=== PATIENT | male | born 2000 | race Two or more races ===

== ENCOUNTER → 2019-09-03 | Outpatient (CLI) | payer OTHER ==
[~2019-09-03] MED LIST: CORTISPORIN EAR10 M1 OTIC
== END | disposition home or self-care (01) ==
LOC: OFIC 805 11:14
DX: H93.8X1 Other specified disorders of right ear (principal); H92.01 Otalgia, right ear; H68.101 Unspecified obstruction of Eustachian tube, right ear

== ENCOUNTER 2019-09-09 13:43 | Outpatient (CLI) | payer OTHER ==
[2019-09-09] MEDS ORDERED: CIPRODEX OTIC7.5 ML OT (14:34)
== END 2019-09-09 16:00 | disposition home or self-care (01) ==
LOC: OFIC 805 13:43
PROVIDERS: ATTEND Otolaryngology
DX: H92.01 Otalgia, right ear (principal); H68.101 Unspecified obstruction of Eustachian tube, right ear; H61.21 Impacted cerumen, right ear; H93.91 Unspecified disorder of right ear

== ENCOUNTER 2019-09-17 08:16 | Outpatient (CLI) | payer OTHER ==
[~2019-09-17 08:16] MED LIST changes: +CIPRODEX OTIC7.5 ML OT
== END 2019-09-17 12:53 | disposition home or self-care (01) ==
LOC: OFIC 805 08:16
PROVIDERS: ATTEND Otolaryngology
DX: H60.8X1 Other otitis externa, right ear (principal); H61.21 Impacted cerumen, right ear; H92.01 Otalgia, right ear